=== PATIENT | male | born 1975 | race Caucasian/White ===

== ENCOUNTER 2019-12-13 18:16 | Emergency (ER) | payer BC, MEDICAID ==
[~2019-12-13] VITALS: Ht 175.3 cm; Wt 79.4 kg
[2019-12-13 20:56] VITALS: Ht 175.3 cm; Wt 79.4 kg
== END 2019-12-13 22:06 | disposition home or self-care (01) ==
LOC: ED 18:16
DX: M79.672 Pain in left foot (principal); M79.671 Pain in right foot

== ENCOUNTER 2019-12-19 17:30 | Emergency (ER) | payer BC, MEDICAID ==
[~2019-12-19] VITALS: Ht 188 cm; Wt 81.6 kg
[2019-12-19 17:38] VITALS: Ht 188 cm; Wt 81.6 kg
[2019-12-19 18:27] VITALS: BP 123/76
== END 2019-12-19 18:21 | disposition left against medical advice (07) ==
LOC: ED 17:30
DX: M79.672 Pain in left foot (principal); M79.671 Pain in right foot; R25.2 Cramp and spasm